=== PATIENT | female | born 1975 ===

== ENCOUNTER 2024-10-30 08:44 | Outpatient (CLI) | payer OTHER | END 2024-10-30 08:50 | disposition home or self-care (01) | LOC: RAD 08:44 | PROVIDERS: ATTEND Orthopaedic Surgery | DX: S82.842A Displaced bimalleolar fracture of left lower leg, initial encounter for closed fracture (principal); X58.XXXA Exposure to other specified factors, initial encounter; Y93.9 Activity, unspecified; Y92.9 Unspecified place or not applicable; Y99.9 Unspecified external cause status ==

== ENCOUNTER 2025-01-01 10:19 | Outpatient (CLI) | payer OTHER | END 2025-01-01 10:26 | disposition home or self-care (01) | LOC: RAD 10:19 | PROVIDERS: ATTEND Orthopaedic Surgery | DX: S82.842A Displaced bimalleolar fracture of left lower leg, initial encounter for closed fracture (principal) ==